=== PATIENT | female | born 1985 | race Caucasian/White ===

== ENCOUNTER 2019-12-08 14:43 | Emergency (ER) | payer OTHER, SELFPAY ==
[2019-12-08 14:50] VITALS: BP 163/102; PULSE 104; RESP 16; TEMP 36.8; O2SAT 99
[2019-12-08 15:30] LABS: Appearance Urine UA CLEAR; Bilirubin Urine UA NEGATIVE (NEGATIVE); Color Urine UA YELLOW; Glucose Urine UA NEGATIVE (Negative); Ketones Urine UA NEGATIVE (NEGATIVE); Leukocyte Esterase Urine UA NEGATIVE (NEGATIVE); Nitrite Urine UA NEGATIVE (Negative); Occult Blood Urine UA 1+ (Negative); Protein Urine UA NEGATIVE (Negative); Specific Gravity Urine UA <=1.005 (1.000-1.035); Urobilinogen Urine UA 0.2 E.U./dL (0.2)
[2019-12-08 15:32] LABS: Add Manual Diff / Slide Review NO; Basophils Absolute Auto 100 /uL (0-100); Basophils Percent Auto 0.9 % (0-2); Eosinophils Absolute Auto 100 /uL (0-450); Eosinophils Percent Auto 1.2 % (2-4); Hemoglobin 13.9 g/dL (12.0-16.0); Lymphocytes Absolute Auto 2100 /uL (1100-4500); Mean Corpuscular HGB Conc 33.1 % (30-36); Mean Corpuscular Hemoglobin 29.6 PG (26-34); Mean Corpuscular Volume 89.5 fL (80-100); Monocytes Absolute Auto 500 /uL (0-900); Monocytes Percent Auto 6.6 % (3-14); Neutrophils Absolute Auto 5000 /uL (1500-7000); Neutrophils Percent Auto 64.3 % (50-75); Platelet Count 332 X10^3/uL (150-400); Red Blood Cell Count 4.69 X10^6/uL (4.0-5.2); White Blood Cell Count 7.7 X10^3/uL (4.5-11.0)
[2019-12-08 15:32] LABS: UR Morphine/Opiate cutoff 300 Negative (Negative); Ur Creatinine Normal (Normal); Ur Specific Gravity Normal (Normal); Urine Amphetamines Negative (Negative); Urine Barbiturates Negative (Negative); Urine Benzodiazepines Negative (Negative); Urine Cocaine Negative (Negative); Urine MDMA Negative (Negative); Urine Methadone Negative (Negative); Urine Methamphetamines Negative (Negative); Urine Oxycodone Negative (Negative); Urine Phencyclidine Negative (Negative); Urine Tetrahydrocannabinol Positive (Negative); Urine Tricyclic Antidepressant Negative (Negative); Urine pH Normal (Normal)
[2019-12-08 15:35] LABS: Pregnancy Test Urine Negative (Negative)
[2019-12-08 15:36] LABS: Bacteria Urine Moderate (10-30); Culture Indicated Urine Cult Not Indicated; RBC Urine 0-1/HPF (0-5/HPF); Squamous Epithelial Cell Urine 5-10 /HPF (0-5/HPF); WBC Urine 0-1/HPF (0-5/HPF); pH Urine UA 6.5 (4.5-8.0)
[2019-12-08 15:43] LABS: Acetaminophen < 10 ug/mL (10-30); Alanine Aminotransferase 11 IU/L (<35); Albumin 4.4 g/dL (3.5-5.0); Albumin Globulin Ratio 1.5 (1.0-2.8); Alkaline Phosphatase 51 U/L (38-126); Aspartate Aminotransferase 23 IU/L (14-36); BUN Creatinine Ratio 19.5 (6-22); Bilirubin Total 0.4 mg/dL (0.2-1.3); Blood Urea Nitrogen 16 mg/dL (7-17); Calcium 9.2 mg/dL (8.4-10.2); Carbon Dioxide 30 mmol/L (22-32); Chloride 103 mmol/L (98-107); Estimated Glomerular Filt Rate > 60.0 mL/min (>60); Ethanol (ETOH) < 10 mg/dL; Glucose 86 mg/dL (70-100); HEMOLYSIS < 15 (0-50); Potassium 3.7 mmol/L (3.4-5.1); Salicylate < 1.0 mg/dL (<20); Sodium 139 mmol/L (137-145); Total Protein 7.4 g/dL (6.3-8.2)
[2019-12-08 16:19] LABS: Thyroid Stimulating Hormone 3.68 uIU/mL (0.47-4.68)
--- NOTE | 2019-12-08 18:29 | ED.PSYCH ---
HPI - Psych <Haley Tillman PA-C - Last Filed: 12/08/19 23:30> General Chief Complaint: Psychiatric Symptoms Stated Complaint: suicidal Time Seen by Provider: 12/08/19 15:10 Source: patient Mode of arrival: Ambulatory Limitations: no limitations History of Present Illness HPI Narrative: 34-year-old woman with a history of depression presents to the emergency department complaining intrusive thoughts of self-harm. The patient states that the last couple of weeks have been extremely stressful for her and things got to a point this morning where she realized she was having thoughts that were scaring her including thinking about the fact there was a gun at home. She was able to push these thoughts out of her mind that she was very concerned she was having them and realized that she should get help she asked some coworkers if they would help her and made some calls and ultimately made the decision to come into the emergency department for evaluation. She has been having some headaches in the evening for the last couple of days but she also knows that she has been reducing her caffeine intake recently as well. She states that physically she has been in a good state of health recently no recent illnesses pain or complaints. Related Data Home Medications Medication Instructions Recorded Confirmed [NYQUIL] #0 01/24/16 Previous Rx's Medication Instructions Recorded nitrofurantoin monohyd/m-cryst 100 mg PO BID 5 Days #10 cap 12/08/19 [Macrobid] Allergies Allergy/AdvReac Type Severity Reaction Status Date / Time amoxicillin [AMOXICILLIN] Allergy Unknown Unverified 06/09/17 12:13 aspirin [ASPIRIN] Allergy Unknown Unverified 06/09/17 12:13 Review of Systems <Haley Tillman PA-C - Last Filed: 12/08/19 23:30> Review of Systems Narrative: GENERAL: Denies chills, fatigue, malaise, fever, sweats. HEENT: Denies sinus pain, ear pain, sore throat, difficulty swallowing, dizziness. RESPIRATORY: Denies dyspnea, cough, wheezing, hemoptysis, sputum. CARDIOVASCULAR: Denies chest pain, palpitations, orthopnea, edema, GASTROINTESTINAL: Denies nausea, vomiting, abdominal pain, diarrhea, constipation, melena. : Denies dysuria, frequency, incontinence, hematuria, urinary retention. MUSCULOSKELETAL: denies weakness, joint pain, or bony pain SKIN: Denies rash, skin lesions, or other NEUROLOGIC: Denies weakness, positive for mild headache, negative for numbness, change in speech, confusion, seizures, incoordination. PSYCHIATRIC: Positive for concerning thoughts intrusive thoughts of self-harm, positive for stress and anxiety in the last 2 weeks, No other concerning psychosocial issues. 12 point review of systems is negative except for those stated above Patient History <Haley Tillman PA-C - Last Filed: 12/08/19 23:30> Social History Smoking Status: Current every day smoker Smoking Status: Current every day smoker alcohol intake frequency: 0-2 drinks per day Substance Use Type: does not use Exam <Haley Tillman PA-C - Last Filed: 12/08/19 23:30> Narrative Exam Narrative: GENERAL: 34 year old patient appears stated age. Well-nourished, well-developed patient, in mild distress. HEAD: Atraumatic. Normocephalic. EYES: Pupils equal round and reactive. Extraocular motions intact. No scleral icterus. No injection or drainage. ENT: Nose without bleeding, purulent drainage. Airway patent. NECK: Trachea midline. Non tender CARDIOVASCULAR: Regular rate and rhythm without murmurs, gallops, or rubs. RESPIRATORY: Clear to auscultation. Breath sounds equal bilaterally. No wheezes, rales, or rhonchi. GASTROINTESTINAL: Abdomen soft, non-tender, nondistended. EXTREMITIES: No edema or joint tenderness. BACK: Nontender without deformity or crepitance. No flank tenderness. NEURO: AOx3. SKIN: No rash or erythema of visible areas PSYCH: Patient seems somewhat tired, she is calm and appropriate in answering questions, speech is regular, normal thought content. Initial Vital Signs Initial Vital Signs: Vital Signs Temperature 98.3 F 12/08/19 14:50 Pulse Rate 104 H 12/08/19 14:50 Respiratory Rate 16 12/08/19 14:50 Blood Pressure 163/102 H 12/08/19 14:50 Pulse Oximetry 99 12/08/19 14:50 <Andrea Smith DO - Last Filed: 12/11/19 19:02> Initial Vital Signs Initial Vital Signs: Vital Signs Temperature 98.3 F 12/08/19 14:50 Pulse Rate 104 H 12/08/19 14:50 Respiratory Rate 16 12/08/19 14:50 Blood Pressure 163/102 H 12/08/19 14:50 Pulse Oximetry 99 12/08/19 14:50 Course <Haley Tillman PA-C - Last Filed: 12/08/19 23:30> Orders Ordered: ED Orders 12/08/19 15:11 Consult to [facility] [place] [facility] Urgent 12/08/19 15:21 Urinalysis and Microscopic Stat 12/08/19 15:23 Urine Drug Screen, Rapid Stat 12/08/19 15:25 Acetaminophen Stat Complete Blood Count AUTO DIFF Stat Comprehensive Metabolic Panel Stat Ethanol (ETOH) Stat Test Urine Stat Salicylate Stat Thyroid Stimulating Hormone Stat Vital Signs Vital signs: Vital Signs - 8 hr 12/08/19 18:59 Pulse Rate 76 Blood Pressure 127/73 Pulse Oximetry 100 <Andrea Smith DO - Last Filed: 12/11/19 19:02> Orders Ordered: ED Orders 12/08/19 15:11 Consult to [facility] [place] [facility] Techn[facility] Urgent 12/08/19 15:21 Urinalysis and Microscopic Stat 12/08/19 15:23 Urine Drug Screen, Rapid Stat 12/08/19 15:25 Acetaminophen Stat Complete Blood Count AUTO DIFF Stat Comprehensive Metabolic Panel Stat Ethanol (ETOH) Stat Test Urine Stat Salicylate Stat Thyroid Stimulating Hormone Stat Vital Signs Vital signs: Vital Signs - 8 hr 12/08/19 18:59 Pulse Rate 76 Blood Pressure 127/73 Pulse Oximetry 100 MDM - Psych <Haley Tillman PA-C - Last Filed: 12/08/19 23:30> Differential Diagnosis Differential diagnosis: Likely suicidal ideation, depression, acute anxiety and other (Stress, thoughts of self-harm) Medical Records Attestation: I reviewed the patient's medical records. Lab Data Attestation: I reviewed the patient's lab results. Result diagrams: 12/08/19 15:25 12/08/19 15:25 Labs: Lab Results 12/08/19 12/08/19 12/08/19 Range/Units 15:21 15:23 15:25 WBC 7.7 (4.5-11.0) X10^3/uL RBC 4.69 (4.0-5.2) X10^6/uL Hgb 13.9 (12.0-16.0) g/dL Hct 42.0 (36-46) % MCV 89.5 (80-100) fL MCH 29.6 (26-34) PG MCHC 33.1 (30-36) % RDW 14.0 (11.6-14.8) % Plt Count 332 (150-400) X10^3/uL Neut % (Auto) 64.3 (50-75) % Lymph % (Auto) 27.0 (25-40) % [place] % (Auto) 6.6 (3-14) % Eos % (Auto) 1.2 L (2-4) % Baso % (Auto) 0.9 (0-2) % Neut # (Auto) 5000 (2729-3624) /uL Lymph # (Auto) 2100 (4391-3833) /uL [place] # (Auto) 500 (0-900) /uL Eos # (Auto) 100 (0-450) /uL Baso # (Auto) 100 (0-100) /uL Sodium (137-145) mmol/L Potassium (3.4-5.1) mmol/L Chloride (98-107) mmol/L Carbon Dioxide (22-32) mmol/L BUN (7-17) mg/dL Creatinine (0.52-1.04) mg/dL Estimated GFR (>60) mL/min BUN/Creatinine Ratio (6-22) Glucose (70-100) mg/dL Calcium (8.4-10.2) mg/dL Total Bilirubin (0.2-1.3) mg/dL AST (14-36) IU/L ALT (<35) IU/L Alkaline Phosphatase (38-126) U/L Total Protein (6.3-8.2) g/dL Albumin (3.5-5.0) g/dL Globulin (1.7-4.1) g/dL Albumin/Globulin Ratio (1.0-2.8) TSH (0.47-4.68) uIU/mL Urine Color Yellow Urine Appearance Clear Urine pH 6.5 (4.5-8.0) Ur Specific [place] <=1.005 (1.000-1.035) Urine Protein Negative (Negative) Urine Glucose (UA) Negative (Negative) g/dL Urine Ketones Negative (NEGATIVE) Urine Occult Blood 1+ H (Negative) Urine Nitrate Negative (Negative) Urine Bilirubin Negative (NEGATIVE) Urine Urobilinogen 0.2 (0.2) E.U./dL Ur Leukocyte Esterase Negative (NEGATIVE) Urine RBC 0-1/hpf (0-5/HPF) Urine WBC 0-1/hpf (0-5/HPF) Ur Squamous Epith Cells 5-10 /hpf H (0-5/HPF) Urine Bacteria Moderate (10-30) H (None) Ur Culture Indicated? Cult not indicated Urine Test (Negative) Salicylates (<20) mg/dL U Opiates 300ng/mL cut Negative (Negative) Ur Oxycodone Screen Negative (Negative) Urine Methadone Screen Negative (Negative) Acetaminophen (10-30) ug/mL Ur Barbiturates Screen Negative (Negative) U Tricyclic Antidepress Negative (Negative) Ur Phencyclidine Scrn Negative (Negative) Ur Amphetamines Screen Negative (Negative) U Methamphetamines Scrn Negative (Negative) Ur MDMA Scrn (Ecstasy) Negative (Negative) U Benzodiazepines Scrn Negative (Negative) Urine Cocaine Screen Negative (Negative) U Marijuana (THC) Screen Positive H (Negative) Ethyl Alcohol ( - 10) mg/dL 12/08/19 12/08/19 12/08/19 Range/Units 15:25 15:25 15:25 WBC (4.5-11.0) X10^3/uL RBC (4.0-5.2) X10^6/uL Hgb (12.0-16.0) g/dL Hct (36-46) % MCV (80-100) fL MCH (26-34) PG MCHC (30-36) % RDW (11.6-14.8) % Plt Count (150-400) X10^3/uL Neut % (Auto) (50-75) % Lymph % (Auto) (25-40) % [place] % (Auto) (3-14) % Eos % (Auto) (2-4) % Baso % (Auto) (0-2) % Neut # (Auto) (3794-5969) /uL Lymph # (Auto) (3271-3989) /uL [place] # (Auto) (0-900) /uL Eos # (Auto) (0-450) /uL Baso # (Auto) (0-100) /uL Sodium 139 (137-145) mmol/L Potassium 3.7 (3.4-5.1) mmol/L Chloride 103 (98-107) mmol/L Carbon Dioxide 30 (22-32) mmol/L BUN 16 (7-17) mg/dL Creatinine 0.82 (0.52-1.04) mg/dL Estimated GFR > 60.0 (>60) mL/min BUN/Creatinine Ratio 19.5 (6-22) Glucose 86 (70-100) mg/dL Calcium 9.2 (8.4-10.2) mg/dL Total Bilirubin 0.4 (0.2-1.3) mg/dL AST 23 (14-36) IU/L ALT 11 (<35) IU/L Alkaline Phosphatase 51 (38-126) U/L Total Protein 7.4 (6.3-8.2) g/dL Albumin 4.4 (3.5-5.0) g/dL Globulin 3.0 (1.7-4.1) g/dL Albumin/Globulin Ratio 1.5 (1.0-2.8) TSH 3.68 (0.47-4.68) uIU/mL Urine Color Urine Appearance Urine pH (4.5-8.0) Ur Specific [place] (1.000-1.035) Urine Protein (Negative) Urine Glucose (UA) (Negative) g/dL Urine Ketones (NEGATIVE) Urine Occult Blood (Negative) Urine Nitrate (Negative) Urine Bilirubin (NEGATIVE) Urine Urobilinogen (0.2) E.U./dL Ur Leukocyte Esterase (NEGATIVE) Urine RBC (0-5/HPF) Urine WBC (0-5/HPF) Ur Squamous Epith Cells (0-5/HPF) Urine Bacteria (None) Ur Culture Indicated? Urine Test Negative (Negative) Salicylates < 1.0 (<20) mg/dL U Opiates 300ng/mL cut (Negative) Ur Oxycodone Screen (Negative) Urine Methadone Screen (Negative) Acetaminophen < 10 L (10-30) ug/mL Ur Barbiturates Screen (Negative) U Tricyclic Antidepress (Negative) Ur Phencyclidine Scrn (Negative) Ur Amphetamines Screen (Negative) U Methamphetamines Scrn (Negative) Ur MDMA Scrn (Ecstasy) (Negative) U Benzodiazepines Scrn (Negative) Urine Cocaine Screen (Negative) U Marijuana (THC) Screen (Negative) Ethyl Alcohol < 10 ( - 10) mg/dL MDM Narrative Medical decision making narrative: Somewhat tired and stressed appearing 34-year-old woman presents to the emergency department complaining of intrusive thoughts of self-harm. Increased stress recent coming to a head today, no active plan for self-harm. She is medically cleared for evaluation and or placement. Labs are unremarkable with exception of evidence of a UTI. After discussion with the social work team, decision is made to pursue outpatient therapy for her concerns today. I feel this is appropriate. Discussed with the patient the urinary infection and antibiotics for this, she was discharged with antibiotics. Also advised regarding contact information for the [facility] social work should she need to call them for additional help in getting set up with better outpatient care. Emergency return precautions provided all questions answered <Andrea Smith DO - Last Filed: 12/11/19 19:02> Lab Data Labs: Lab Results 12/08/19 12/08/19 12/08/19 Range/Units 15:21 15:23 15:25 WBC 7.7 (4.5-11.0) X10^3/uL RBC 4.69 (4.0-5.2) X10^6/uL Hgb 13.9 (12.0-16.0) g/dL Hct 42.0 (36-46) % MCV 89.5 (80-100) fL MCH 29.6 (26-34) PG MCHC 33.1 (30-36) % RDW 14.0 (11.6-14.8) % Plt Count 332 (150-400) X10^3/uL Neut % (Auto) 64.3 (50-75) % Lymph % (Auto) 27.0 (25-40) % [place] % (Auto) 6.6 (3-14) % Eos % (Auto) 1.2 L (2-4) % Baso % (Auto) 0.9 (0-2) % Neut # (Auto) 5000 (5995-9443) /uL Lymph # (Auto) 2100 (4718-9217) /uL [place] # (Auto) 500 (0-900) /uL Eos # (Auto) 100 (0-450) /uL Baso # (Auto) 100 (0-100) /uL Sodium (137-145) mmol/L Potassium (3.4-5.1) mmol/L Chloride (98-107) mmol/L Carbon Dioxide (22-32) mmol/L BUN (7-17) mg/dL Creatinine (0.52-1.04) mg/dL Estimated GFR (>60) mL/min BUN/Creatinine Ratio (6-22) Glucose (70-100) mg/dL Calcium (8.4-10.2) mg/dL Total Bilirubin (0.2-1.3) mg/dL AST (14-36) IU/L ALT (<35) IU/L Alkaline Phosphatase (38-126) U/L Total Protein (6.3-8.2) g/dL Albumin (3.5-5.0) g/dL Globulin (1.7-4.1) g/dL Albumin/Globulin Ratio (1.0-2.8) TSH (0.47-4.68) uIU/mL Urine Color Yellow Urine Appearance Clear Urine pH 6.5 (4.5-8.0) Ur Specific [place] <=1.005 (1.000-1.035) Urine Protein Negative (Negative) Urine Glucose (UA) Negative (Negative) g/dL Urine Ketones Negative (NEGATIVE) Urine Occult Blood 1+ H (Negative) Urine Nitrate Negative (Negative) Urine Bilirubin Negative (NEGATIVE) Urine Urobilinogen 0.2 (0.2) E.U./dL Ur Leukocyte Esterase Negative (NEGATIVE) Urine RBC 0-1/hpf (0-5/HPF) Urine WBC 0-1/hpf (0-5/HPF) Ur Squamous Epith Cells 5-10 /hpf H (0-5/HPF) Urine Bacteria Moderate (10-30) H (None) Ur Culture Indicated? Cult not indicated Urine Test (Negative) Salicylates (<20) mg/dL U Opiates 300ng/mL cut Negative (Negative) Ur Oxycodone Screen Negative (Negative) Urine Methadone Screen Negative (Negative) Acetaminophen (10-30) ug/mL Ur Barbiturates Screen Negative (Negative) U Tricyclic Antidepress Negative (Negative) Ur Phencyclidine Scrn Negative (Negative) Ur Amphetamines Screen Negative (Negative) U Methamphetamines Scrn Negative (Negative) Ur MDMA Scrn (Ecstasy) Negative (Negative) U Benzodiazepines Scrn Negative (Negative) Urine Cocaine Screen Negative (Negative) U Marijuana (THC) Screen Positive H (Negative) Ethyl Alcohol ( - 10) mg/dL 12/08/19 12/08/19 12/08/19 Range/Units 15:25 15:25 15:25 WBC (4.5-11.0) X10^3/uL RBC (4.0-5.2) X10^6/uL Hgb (12.0-16.0) g/dL Hct (36-46) % MCV (80-100) fL MCH (26-34) PG MCHC (30-36) % RDW (11.6-14.8) % Plt Count (150-400) X10^3/uL Neut % (Auto) (50-75) % Lymph % (Auto) (25-40) % [place] % (Auto) (3-14) % Eos % (Auto) (2-4) % Baso % (Auto) (0-2) % Neut # (Auto) (8127-4348) /uL Lymph # (Auto) (1864-3236) /uL [place] # (Auto) (0-900) /uL Eos # (Auto) (0-450) /uL Baso # (Auto) (0-100) /uL Sodium 139 (137-145) mmol/L Potassium 3.7 (3.4-5.1) mmol/L Chloride 103 (98-107) mmol/L Carbon Dioxide 30 (22-32) mmol/L BUN 16 (7-17) mg/dL Creatinine 0.82 (0.52-1.04) mg/dL Estimated GFR > 60.0 (>60) mL/min BUN/Creatinine Ratio 19.5 (6-22) Glucose 86 (70-100) mg/dL Calcium 9.2 (8.4-10.2) mg/dL Total Bilirubin 0.4 (0.2-1.3) mg/dL AST 23 (14-36) IU/L ALT 11 (<35) IU/L Alkaline Phosphatase 51 (38-126) U/L Total Protein 7.4 (6.3-8.2) g/dL Albumin 4.4 (3.5-5.0) g/dL Globulin 3.0 (1.7-4.1) g/dL Albumin/Globulin Ratio 1.5 (1.0-2.8) TSH 3.68 (0.47-4.68) uIU/mL Urine Color Urine Appearance Urine pH (4.5-8.0) Ur Specific [place] (1.000-1.035) Urine Protein (Negative) Urine Glucose (UA) (Negative) g/dL Urine Ketones (NEGATIVE) Urine Occult Blood (Negative) Urine Nitrate (Negative) Urine Bilirubin (NEGATIVE) Urine Urobilinogen (0.2) E.U./dL Ur Leukocyte Esterase (NEGATIVE) Urine RBC (0-5/HPF) Urine WBC (0-5/HPF) Ur Squamous Epith Cells (0-5/HPF) Urine Bacteria (None) Ur Culture Indicated? Urine Test Negative (Negative) Salicylates < 1.0 (<20) mg/dL U Opiates 300ng/mL cut (Negative) Ur Oxycodone Screen (Negative) Urine Methadone Screen (Negative) Acetaminophen < 10 L (10-30) ug/mL Ur Barbiturates Screen (Negative) U Tricyclic Antidepress (Negative) Ur Phencyclidine Scrn (Negative) Ur Amphetamines Screen (Negative) U Methamphetamines Scrn (Negative) Ur MDMA Scrn (Ecstasy) (Negative) U Benzodiazepines Scrn (Negative) Urine Cocaine Screen (Negative) U Marijuana (THC) Screen (Negative) Ethyl Alcohol < 10 ( - 10) mg/dL Discharge Plan Departure Patient Disposition: Home Clinical Impression: Thoughts of self harm, Stress UTI (urinary tract infection) Qualifiers: Urinary tract infection type: acute cystitis Hematuria presence: with hematuria Qualified Code(s): N30.01 - Acute cystitis with hematuria Discharge Date/Time: 12/08/19 19:21 Instructions: DI for Urinary Tract Infection (UTI), DI for Suicidal Ideation-Adult Activity Restrictions/Additional Instructions: Thank you for letting us be part of your care in the emergency department today. From a medical standpoint your evaluation everything looks good, except that you do have evidence of a urinary tract infection, I am prescribing some antibiotics for you to take for this. Your infection does appear to be fairly mild however it is important to treat this. After discussion with our drug abuse social worker you have made a plan to work on getting better outpatient help for your concerns, I feel this is appropriate and I am including the phone number for our social Work year that you can call if needed that number is [phone]. I am also providing a work note for you see can take the next few days off if that is helpful for you. I hope that you get some resolution of the increased stress you have been having and some better help and that you start feeling better soon. There is no evidence of an emergent or life threatening illness at this time, but follow up with your doctor in 1-2 days is recommended nonetheless to continue to rule out serious underlying causes of your symptoms. Please call the office for an appointment. Please return to the Emergency Department for any worsening or persistent symptoms. Please take medications as directed. Prescriptions: New nitrofurantoin monohyd/m-cryst [Macrobid] 100 mg capsule 100 mg PO BID 5 Days Qty: 10 RF: 0 No Action [NYQUIL] Qty: 0 RF: 0 Referrals: Holly Carrion ARNP [Primary Care Provider] - Stand Alone Forms: Work Release Note <Andrea Smith, - Last Filed: 12/11/19 19:02> [facility] Dr Smith Co-Sign Statement: I was available for consultation during this patient's emergency department visit. This chart is signed by myself for administrative purposes only. I did not have direct contact with this patient during this visit. They were seen independently by the APC.
[2019-12-08 18:59] VITALS: BP 127/73; PULSE 76; O2SAT 100
--- NOTE | 2019-12-08 19:07 | CM.SWNOTE ---
STOCK ORDER LISTER assessment STOCK ORDER LISTER - Search Engine Marketing Manager Assessment STOCK ORDER LISTER - Search Engine Marketing Manager Assessment Start: 12/08/19 18:41 Freq: Status: Active Protocol: Document 12/08/19 18:41 KYM (Rec: 12/08/19 19:06 KYM [id number]) STOCK ORDER LISTER/Search Engine Marketing Manager Assessment Time Spent with Patient Start date 12/08/19 Visit Start Time 16:30 End date 12/08/19 Visit End Time 17:30 Total time Care Management spent on 60 patient visit-in minutes Mental Health Screening Include Onset, Duration, Intensity Presenting Problem Patient presents to ED today reporting increasing frequency of thoughts of SI. Patient reports she has had depression and anxiety throughout her life but reports an escalation of work and home stress during the past month. Patient reports that her negative self talk amplifies her symptoms of anxiety and depression. Precipitating Event(s) Patient reports she has been having scary thoughts with regards to her SI, and reports that today she experienced having the the thought well, my boyfriend does have a gun and states she was afraid that she had had this thought. Patient lost her mother and step father 5 and 3 years prior, respectively. Patient reports she has not fully faced her grieving of them. 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 Patient reports that there has been some turbulence in her home life including her boyfriend's temporary loss of income, recent increase in custody of boyfriend's son, and her boyfriend's alcohol use. Patient Strengths Patient presents as compassionate, humble and is insightful about her behavioral health. 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 Current Behavioral Health Provider(s) Patient reports no current Include Facility, Provider, Ph. # behavioral health provider. Patient reports having attempted counseling off and on throughout her life, and reports having negative experiences, including role reversal, being told that she plateaued in therapy, and being told repeatedly to try techniques that she had told the counselor made her symptoms worse. Psych. Hx Mental Health and Chemical Patient has hx of depression, Dependency anxiety. Patient reports she has had thoughts of SI previously and reports no suicide attempts. Patient reports consistent negative self-talk as primary and on- going concern. Patient reports having tried several antidepressants, but reports having found limited success in symptom reduction. Patient currently taking no psychiatric medication. Patient discloses use of marijuana, but denies any other substance or alcohol use . Family Hx of Behavioral Abuse Patient reports her parents were alcoholics, but does not disclose other specifics related to childhood abuse. Psychiatric Hospitalizations (date(s)/ None. location) Psychosocial information & Support Patient is a 34 y/o female who Systems lives with her ocean transportation intermediary boyfriend and his son. Patient reports that there have been some trust concerns in relationship with boyfriend, but reports that he is supportive. Patient reports positive relationship with boyfriend's son, and reports positive relationships with her supervisor advice and co-workers. 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 Legal Concerns Legal Matters - Outstanding Issues None reported. Mental Status Orientation (Person/Place/Time) Oriented x3 Stated Mood I've been better Affect (Congruent with Mood?) Dysphoric, tearful, normal range, stable, congruent with mood Thought Content - Specify/Describe Patient discusses consistent, Obsessions, Delusions, Hallucinations instantaneous, negative self- talk in response to her successes in life. No obsession, hallucinations, or delusions observed or reported . Thought Processes (Ilsjwwh-Pirznwob-Bwri Logical Zrvatrhm-Ufofhowg-Oaoekcwecq- Fmzpmvwsrvrhzp-Wvrhgik-Lopegllrauuu- Thought Blocking) Speech (Vlgpda-Zoae-Wrjlakt-Rapid-Soft- Normal Loud-Pressured) Motor (Mzfqsz-Pzkahpxcr-Mdte-Other) Normal Insight (Euzh-Ibib-Rsxc/Limited) Good Judgement (Bscq-Lvvy-Gwep/Limited) Good Impulse Control (Adequate-Impaired) Adequate Memory (Ptxsplrge-Vxwztw-Mysewd, Intact x3 Impaired-Intact) Concentration (Intact-Impaired) Intact Attention (Intact-Impaired) Intact Behavior (Appropriate-Inappropriate) Appropriate Risk Assessment Suicidal Ideation (Plan) No Homicidal Ideation (Plan) No Comment Patient denies SI/HI. Patient states she has had the thought of I don't want to be here anymore regularly, but that she does not have a plan. Patient states she was scared when she had the thought well, my boyfriend does have a gun, and reached out to a co worker for support. Patient reports she is not thinking of killing herself, states she does not have access to gun or know how to use it, and reiterated her hope to feel better. Intervention Intervention STOCK ORDER LISTER met with patient. STOCK ORDER LISTER reviewed hx of depression, anxiety, counseling, and life stressors. Patient denies suicidal plan and states she wants to get better. Patient articulates desire for support in finding a counselor who will be able to take an active role in assisting her in addressing her negative self- thinking. STOCK ORDER LISTER provides resources to patient and provides education regarding louis techniques to look for while looking for a counselor, and provides ED social work phone for additional support. Patient indicated understanding and will reach out to counselor following week. Plan RA Plan Plan for D/C to home and patient to secure outpatient counselor. AMISHA Rodriguez
== END 2019-12-08 19:21 | disposition home or self-care (01) ==
PROVIDERS: Emergency Provider Student in an Organized Health Care Education/Training Program; Family Provider Nurse Practitioner; PCP Nurse Practitioner
DX: R45.851 Suicidal ideations (principal); F43.9 Reaction to severe stress, unspecified; N30.01 Acute cystitis with hematuria; R45.89 Other symptoms and signs involving emotional state
CPT/HCPCS: 36415; 80053; 80305; 80320; 80329; 81001; 81025; 84443; 85025; 99283; G0480

== ENCOUNTER 2023-11-22 12:05 | Emergency (ER) | payer OTHER, SELFPAY ==
[2023-11-22 12:10] VITALS: BP 162/98; PULSE 103; RESP 18; TEMP 36.9; O2SAT 99; BMI 30.5
--- NOTE | 2023-11-22 12:21 | EKG_ITS ---
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
--- NOTE | 2023-11-22 12:49 | ED.GENADULT ---
HPI - General Adult <Benjamin Villagomez PA-C - Last Filed: 11/22/23 15:10> General Chief complaint: Environmental Exposure Stated complaint: electric shock Time Seen by Provider: 11/22/23 12:26 History of Present Illness HPI narrative: 38-year-old female presents to the ED status post a electric shock sustained at work this morning. Patient works at [employer], was trying to unplug an open from the wall since it was not working, she received a brief electric shock to the left hand when she tried to pull the plug usp out the socket. She managed to push the plug back in and remove her hand. Patient denies any street, chest pain, shortness of breath. Patient does endorse some mild tingling in her left arm. Patient endorses that her heart was racing. No other symptoms. No street. Full range of motion of the fingers and hand. Related Data Home Medications Medication Instructions Recorded Confirmed [NYQUIL] ##0 01/24/16 Allergies Allergy/AdvReac Type Severity Reaction Status Date / Time amoxicillin [AMOXICILLIN] Allergy Unknown Unverified 06/09/17 12:13 aspirin [ASPIRIN] Allergy Unknown Unverified 06/09/17 12:13 Review of Systems <Benjamin Villagomez PA-C - Last Filed: 11/22/23 15:10> Constitutional Constitutional: Denies chills, Denies fatigue, Denies fever(s), Denies frequent falls, Denies lethargy and Denies weakness Eyes Eyes: Denies change in vision, Denies eye discharge, Denies irritation and Denies loss of vision ENT Ears, Nose, Mouth, and Throat: Denies change in voice, Denies dizziness, Denies neck pain, Denies sore throat and Denies throat swelling Cardiovascular Cardiovascular: Denies chest pain, Reports rapid heart rate, Denies irregular heart rhythm, Denies lightheadedness, Denies palpitations, Denies dyspnea, Denies dyspnea on exertion and Denies orthopnea Respiratory Respiratory: Denies cough, Denies dyspnea, Denies dyspnea on exertion and Denies wheezing Gastrointestinal Gastrointestinal: Denies abdominal pain, Denies change in bowel habits, Denies diarrhea, Denies nausea and Denies vomiting Musculoskeletal Musculoskeletal: Denies neck pain and Denies numbness Comments: Tingling in left arm Integumentary/Breasts Skin/Breast: Denies pruritus, Denies erythema, Denies rash and Denies wounds Neurologic Neurologic: Denies behavioral changes, Denies confusion, Denies dizziness, Denies frequent falls, Denies loss of vision, Denies numbness and Denies weakness Psychiatric Psychiatric: Denies anxiety, Denies behavioral changes, Denies confusion, Denies depression, Denies homicidal ideation and Denies suicidal ideation Endocrine Endocrine: Denies fatigue, Denies flushing and Denies palpitations Hematologic/Lymphatic Hematologic/Lymphatic: Denies easy bruising Allergic/Immunologic Allergic/Immunologic: Denies urticaria, Denies throat swelling and Denies wheezing Patient History <Benjamin Villagomez PA-C - Last Filed: 11/22/23 15:10> Social History Smoking Status: Current every day smoker Smoking Status: Current every day smoker tobacco type: cigarettes alcohol intake frequency: 0-2 drinks per day Substance Use Type: marijuana Exam <Benjamin Villagomez PA-C - Last Filed: 11/22/23 15:10> Narrative Exam Narrative: Const General:?cooperative, healthy appearing and comfortable [facility] Head:?normal to inspection Ears:?hearing grossly normal bilaterally Nose:?external nose normal Face and sinus:?normal facial exam and sinuses nontender Mouth:?oral mucosae normal Throat:?posterior oropharynx normal Eyes General:?appearance normal, both eyes and all related structures Neck Neck:?normal visual inspection and no lymphadenopathy noted Resp Effort & Inspection:?normal respiratory effort Auscultation:?clear to auscultation bilaterally Cardio Rate:?tachycardic Rhythm:?regular rhythm Musculoskeletal/Integumentary Patient has full range of motion of the arm, hand, fingers. No strictures. No street. Neurovascularly intact. Neuro General:?patient alert, patient awake and patient oriented x3 Initial Vital Signs Initial Vital Signs: Vital Signs Temperature 98.4 F 11/22/23 12:10 Pulse Rate 103 H 11/22/23 12:10 Respiratory Rate 18 11/22/23 12:10 Blood Pressure 162/98 H 11/22/23 12:10 Pulse Oximetry 99 11/22/23 12:10 Oxygen Delivery Method Room Air 11/22/23 12:10 <Benja Kern DO - Last Filed: 11/23/23 10:29> Initial Vital Signs Initial Vital Signs: Vital Signs Temperature 98.4 F 11/22/23 12:10 Pulse Rate 103 H 11/22/23 12:10 Respiratory Rate 18 11/22/23 12:10 Blood Pressure 162/98 H 11/22/23 12:10 Pulse Oximetry 99 11/22/23 12:10 Oxygen Delivery Method Room Air 11/22/23 12:10 Course <LEA Edgar Last Filed: 11/22/23 15:10> Orders Ordered: ED Orders 11/22/23 12:14 EKG-12 Lead Stat 11/22/23 13:15 CBC Auto Diff [Complete Blood Count AUTO DIFF] Stat CMP [Comprehensive Metabolic Panel] Stat Lactate (Lactic Acid) Stat Troponin & CK Cardiac Panel Stat 11/22/23 14:15 Test Urine Stat Urinalysis and Microscopic Stat 11/22/23 14:23 Urine Culture Stat Urine Microscopic Stat Vital Signs Vital signs: Vital Signs - 8 hr 11/22/23 12:10 11/22/23 14:52 Temperature 98.4 F 97.6 F Pulse Rate 103 H 100 H Respiratory Rate 18 20 Blood Pressure 162/98 H 125/86 Pulse Oximetry 99 97 Oxygen Delivery Method Room Air Room Air <Benja Kern DO - Last Filed: 11/23/23 10:29> Orders Ordered: ED Orders 11/22/23 12:14 EKG-12 Lead Stat 11/22/23 13:15 CBC Auto Diff [Complete Blood Count AUTO DIFF] Stat CMP [Comprehensive Metabolic Panel] Stat Lactate (Lactic Acid) Stat Troponin & CK Cardiac Panel Stat 11/22/23 14:15 Test Urine Stat Urinalysis and Microscopic Stat 11/22/23 14:23 Urine Culture Stat Urine Microscopic Stat Vital Signs Vital signs: Vital Signs - 8 hr 11/22/23 12:10 11/22/23 14:52 Temperature 98.4 F 97.6 F Pulse Rate 103 H 100 H Respiratory Rate 18 20 Blood Pressure 162/98 H 125/86 Pulse Oximetry 99 97 Oxygen Delivery Method Room Air Room Air Medical Decision Making <LEA Edgar Last Filed: 11/22/23 15:10> Lab Data 11/22/23 13:15 11/22/23 13:15 Labs: Lab Results 11/22/23 11/22/23 Range/Units 13:15 14:15 WBC 8.1 (4.5-11.0) X10^3/uL RBC 4.64 (4.0-5.2) X10^6/uL Hgb 13.9 (12.0-16.0) g/dL Hct 40.8 (36-46) % MCV 88.0 (80-100) fL MCH 30.0 (26-34) PG MCHC 34.1 (30-36) % RDW 13.8 (11.6-14.8) % Plt Count 323 (150-400) X10^3/uL Neut % (Auto) 66.3 (50-75) % Lymph % (Auto) 25.6 (25-40) % [place] % (Auto) 6.5 (3-14) % Eos % (Auto) 0.9 L (2-4) % Baso % (Auto) 0.7 (0-2) % Neut # (Auto) 5400 (2896-8002) /uL Lymph # (Auto) 2100 (8721-4373) /uL [place] # (Auto) 500 (0-900) /uL Eos # (Auto) 100 (0-450) /uL Baso # (Auto) 100 (0-100) /uL Sodium 136 L (137-145) mmol/L Potassium 3.8 (3.4-5.1) mmol/L Chloride 106 (98-107) mmol/L Carbon Dioxide 21 L (22-32) mmol/L BUN 14 (7-17) mg/dL Creatinine 0.72 (0.52-1.04) mg/dL Estimated GFR > 60 (>60) mL/min BUN/Creatinine Ratio 19.4 (6-22) Glucose 90 (70-100) mg/dL Lactate 0.8 (0.7-2.1) mmol/L Calcium 9.4 (8.4-10.2) mg/dL Total Bilirubin 0.4 (0.2-1.3) mg/dL AST 23 (14-36) IU/L ALT 16 (<35) IU/L Alkaline Phosphatase 51 (38-126) U/L Total Creatine Kinase 86 (30-135) U/L Troponin I < 0.012 (0.01-0.034) ng/mL Total Protein 7.2 (6.3-8.2) g/dL Albumin 4.5 (3.5-5.0) g/dL Globulin 2.7 (1.7-4.1) g/dL Albumin/Globulin Ratio 1.7 (1.0-2.8) Urine Color Yellow Urine Appearance Clear Urine pH 6.0 (4.5-8.0) Ur Specific [place] <=1.005 (1.000-1.035) Urine Protein Negative (Negative) Urine Glucose (UA) Negative (Negative) g/dL Urine Ketones Negative (NEGATIVE) Urine Occult Blood 1+ H (Negative) Urine Nitrate Negative (Negative) Urine Bilirubin Negative (NEGATIVE) Urine Urobilinogen 0.2 (0.2) E.U./dL Ur Leukocyte Esterase Negative (NEGATIVE) Urine RBC 0-1/hpf (0-5/HPF) Urine WBC 0-1/hpf (0-5/HPF) Ur Squamous Epith Cells 0-1 /hpf (0-5/HPF) Urine Bacteria Few (2-10) H (None) Ur Culture Indicated? Cult not indicated Vol Urine Centrifuged 10ml (spun) Urine Test Negative (Negative) Urine Dip Bedside Urine Glucose Negative Bedside Urine Bilirubin - Negative Bedside Urine Ketone - Negative Urine Specific [place] 1.010 Bedside Urine Occult Blood + Bedside Urine pH 6.0 Bedside Urine Protein - Negative Bedside Urine Urobilinogen - Negative Bedside Urine Nitrite - Negative Bedside Urine Leukocytes - Negative Esterase Point of care testing: Urine Dip Bedside Urine Glucose Negative Bedside Urine Bilirubin - Negative Bedside Urine Ketone - Negative Urine Specific [place] 1.010 Bedside Urine Occult Blood + Bedside Urine pH 6.0 Bedside Urine Protein - Negative Bedside Urine Urobilinogen - Negative Bedside Urine Nitrite - Negative Bedside Urine Leukocytes - Negative Esterase [facility] Narrative Medical decision making narrative: 38-year-old female presents to the ED status post a electric shock sustained at work this morning. EKG was obtained shows sinus tachycardia at ventricular rate 101 beats per minute. No acute ST-T changes. Rightward axis. Physical exam is reassuring for no street, no strictures. There is full range of motion. Labs WNL. Urine POC positive for occult blood, Urinalysis neg for RBC. However, urine is light yello, CK is 86 which is WNL. Unlikely rhabdomyolysis. Troponin neg. Patient endorses feeling better, tingling in her arm has improved, she has not experiencing any chest pain or shortness of breath. She agrees to monitor symptoms and return to the ED if worsening symptoms. Medical records reviewed: Yes <Benja Kern, DO - Last Filed: 11/23/23 10:29> Lab Data Labs: Lab Results 11/22/23 11/22/23 Range/Units 13:15 14:15 WBC 8.1 (4.5-11.0) X10^3/uL RBC 4.64 (4.0-5.2) X10^6/uL Hgb 13.9 (12.0-16.0) g/dL Hct 40.8 (36-46) % MCV 88.0 (80-100) fL MCH 30.0 (26-34) PG MCHC 34.1 (30-36) % RDW 13.8 (11.6-14.8) % Plt Count 323 (150-400) X10^3/uL Neut % (Auto) 66.3 (50-75) % Lymph % (Auto) 25.6 (25-40) % [place] % (Auto) 6.5 (3-14) % Eos % (Auto) 0.9 L (2-4) % Baso % (Auto) 0.7 (0-2) % Neut # (Auto) 5400 (0592-8613) /uL Lymph # (Auto) 2100 (8711-2248) /uL [place] # (Auto) 500 (0-900) /uL Eos # (Auto) 100 (0-450) /uL Baso # (Auto) 100 (0-100) /uL Sodium 136 L (137-145) mmol/L Potassium 3.8 (3.4-5.1) mmol/L Chloride 106 (98-107) mmol/L Carbon Dioxide 21 L (22-32) mmol/L BUN 14 (7-17) mg/dL Creatinine 0.72 (0.52-1.04) mg/dL Estimated GFR > 60 (>60) mL/min BUN/Creatinine Ratio 19.4 (6-22) Glucose 90 (70-100) mg/dL Lactate 0.8 (0.7-2.1) mmol/L Calcium 9.4 (8.4-10.2) mg/dL Total Bilirubin 0.4 (0.2-1.3) mg/dL AST 23 (14-36) IU/L ALT 16 (<35) IU/L Alkaline Phosphatase 51 (38-126) U/L Total Creatine Kinase 86 (30-135) U/L Troponin I < 0.012 (0.01-0.034) ng/mL Total Protein 7.2 (6.3-8.2) g/dL Albumin 4.5 (3.5-5.0) g/dL Globulin 2.7 (1.7-4.1) g/dL Albumin/Globulin Ratio 1.7 (1.0-2.8) Urine Color Yellow Urine Appearance Clear Urine pH 6.0 (4.5-8.0) Ur Specific [place] <=1.005 (1.000-1.035) Urine Protein Negative (Negative) Urine Glucose (UA) Negative (Negative) g/dL Urine Ketones Negative (NEGATIVE) Urine Occult Blood 1+ H (Negative) Urine Nitrate Negative (Negative) Urine Bilirubin Negative (NEGATIVE) Urine Urobilinogen 0.2 (0.2) E.U./dL Ur Leukocyte Esterase Negative (NEGATIVE) Urine RBC 0-1/hpf (0-5/HPF) Urine WBC 0-1/hpf (0-5/HPF) Ur Squamous Epith Cells 0-1 /hpf (0-5/HPF) Urine Bacteria Few (2-10) H (None) Ur Culture Indicated? Cult not indicated Vol Urine Centrifuged 10ml (spun) Urine Test Negative (Negative) Urine Dip Bedside Urine Glucose Negative Bedside Urine Bilirubin - Negative Bedside Urine Ketone - Negative Urine Specific [place] 1.010 Bedside Urine Occult Blood + Bedside Urine pH 6.0 Bedside Urine Protein - Negative Bedside Urine Urobilinogen - Negative Bedside Urine Nitrite - Negative Bedside Urine Leukocytes - Negative Esterase Point of care testing: Urine Dip Bedside Urine Glucose Negative Bedside Urine Bilirubin - Negative Bedside Urine Ketone - Negative Urine Specific [place] 1.010 Bedside Urine Occult Blood + Bedside Urine pH 6.0 Bedside Urine Protein - Negative Bedside Urine Urobilinogen - Negative Bedside Urine Nitrite - Negative Bedside Urine Leukocytes - Negative Esterase MDM Narrative Medical decision making narrative: 38-year-old female presents to the ED status post a electric shock sustained at work this morning. EKG was obtained shows sinus tachycardia at ventricular rate 101 beats per minute. No acute ST-T changes. Rightward axis. Physical exam is reassuring for no street, no strictures. There is full range of motion. Labs WNL. Urine POC positive for occult blood, Urinalysis neg for RBC. However, urine is light yello, CK is 86 which is WNL. Unlikely rhabdomyolysis. Troponin neg. Patient endorses feeling better, tingling in her arm has improved, she has not experiencing any chest pain or shortness of breath. She agrees to monitor symptoms and return to the ED if worsening symptoms. Medical records reviewed: Yes Dr. Kern: I was immediately available in the department for consultation. Documentation has been reviewed. I agree with assessment and plan. Discharge Plan Departure Patient Disposition: Home Clinical Impression: Electric shock Qualifiers: Encounter type: initial encounter Qualified Code(s): T75.4XXA - Electrocution, initial encounter Instructions: DI for Electric Shock Injuries Activity Restrictions/Additional Instructions: You were evaluated in the ED today after receiving a electric shock. Your EKG, labs and urine are normal. Please continue monitor your symptoms and return to the ED if you experience worsening symptoms, chest pain, shortness of breath, muscular pain. Prescriptions: No Action [NYQUIL] Qty: 0 Referrals: Holly Carrion ARNP [Primary Care Provider] - Stand Alone Forms: Patient Portal/API
[2023-11-22 13:30] LABS: Add Manual Diff / Slide Review NO; Basophils Absolute Auto 100 /uL (0-100); Basophils Percent Auto 0.7 % (0-2); Eosinophils Absolute Auto 100 /uL (0-450); Eosinophils Percent Auto 0.9 % (2-4); Hematocrit 40.8 % (36-46); Hemoglobin 13.9 g/dL (12.0-16.0); Lymphocytes Absolute Auto 2100 /uL (1100-4500); Lymphocytes Percent Auto 25.6 % (25-40); Mean Corpuscular HGB Conc 34.1 % (30-36); Monocytes Absolute Auto 500 /uL (0-900); Monocytes Percent Auto 6.5 % (3-14); Neutrophils Absolute Auto 5400 /uL (1500-7000); Neutrophils Percent Auto 66.3 % (50-75); Platelet Count 323 X10^3/uL (150-400); Red Blood Cell Count 4.64 X10^6/uL (4.0-5.2); Red Cell Distribution Width 13.8 % (11.6-14.8); White Blood Cell Count 8.1 X10^3/uL (4.5-11.0)
[2023-11-22 13:39] LABS: Lactate (Lactic Acid) 0.8 mmol/L (0.7-2.1)
[2023-11-22 13:40] LABS: Alanine Aminotransferase 16 IU/L (<35); Albumin 4.5 g/dL (3.5-5.0); Albumin Globulin Ratio 1.7 (1.0-2.8); Alkaline Phosphatase 51 U/L (38-126); Aspartate Aminotransferase 23 IU/L (14-36); BUN Creatinine Ratio 19.4 (6-22); Bilirubin Total 0.4 mg/dL (0.2-1.3); Blood Urea Nitrogen 14 mg/dL (7-17); Calcium 9.4 mg/dL (8.4-10.2); Carbon Dioxide 21 mmol/L (22-32); Chloride 106 mmol/L (98-107); Creatine Kinase 86 U/L (30-135); Estimated Glomerular Filt Rate > 60 mL/min (>60); Globulin 2.7 g/dL (1.7-4.1); Glucose 90 mg/dL (70-100); HEMOLYSIS < 15 (0-50); Potassium 3.8 mmol/L (3.4-5.1); Sodium 136 mmol/L (137-145); Total Protein 7.2 g/dL (6.3-8.2)
[2023-11-22 13:51] LABS: Troponin I < 0.012 ng/mL (0.01-0.034)
[2023-11-22 14:25] LABS: Appearance Urine UA CLEAR; Bilirubin Urine UA NEGATIVE (NEGATIVE); Color Urine UA YELLOW; Glucose Urine UA NEGATIVE (Negative); Ketones Urine UA NEGATIVE (NEGATIVE); Leukocyte Esterase Urine UA NEGATIVE (NEGATIVE); Nitrite Urine UA NEGATIVE (Negative); Occult Blood Urine UA 1+ (Negative); Protein Urine UA NEGATIVE (Negative); Specific Gravity Urine UA <=1.005 (1.000-1.035); Urobilinogen Urine UA 0.2 E.U./dL (0.2)
[2023-11-22 14:26] LABS: Pregnancy Test Urine Negative (Negative)
[2023-11-22 14:33] LABS: Bacteria Urine Few (2-10); Culture Indicated Urine Cult Not Indicated; RBC Urine 0-1/HPF (0-5/HPF); Squamous Epithelial Cell Urine 0-1 /HPF (0-5/HPF); Urine Volume 10mL (spun); WBC Urine 0-1/HPF (0-5/HPF)
[2023-11-22 14:52] VITALS: BP 125/86; PULSE 100; RESP 20; TEMP 36.4; O2SAT 97
== END 2023-11-22 14:53 | disposition home or self-care (01) ==
PROVIDERS: Emergency Provider Student in an Organized Health Care Education/Training Program; Family Provider Nurse Practitioner; PCP Nurse Practitioner
DX: T75.4XXA Electrocution, initial encounter (principal); R00.0 Tachycardia, unspecified
CPT/HCPCS: 36415; 80053; 81001; 81003; 81025; 82550; 83605; 84484; 85025; 87086; 93005; 93010; 99282; 99284